=== PATIENT | female | born 1990 | race Caucasian/White ===

== ENCOUNTER 2018-05-19 10:40 | Emergency (ER) | payer OTHER, BC ==
[2018-05-19 11:09] VITALS: BP 135/90
[2018-05-19] MEDS ORDERED: ACETAMINOPHEN 500 MG TAB PO ONE (12:55)
--- NOTE | 2018-05-19 14:18 | EDPHY ---
General Time Seen by Provider: 05/19/18 13:01 Narrative: CLINICAL IMPRESSION: Left pointer finger laceration ASSESSMENT/PLAN: Patient is a 28-year-old female with no significant medical history who presents to the emergency department after sustaining a superficial laceration to her left pointer finger. Patient is not toxic appearing, she is in no distress. Physical examination reveals superficial 1.5 cm laceration to the radial aspect of the left distal phalanx; does not involve the nail. There is no evidence of deep structure involvement, neurovascular compromise, foreign body, or bony involvement. The wound was not contaminated, tetanus status was already up-to-date. The wound was irrigated and then repaired as discussed in the procedure note, the patient tolerated this well. Wound care instructions discussed with patient and family member. She is well established with his PCP , they will call to schedule an appointment for wound check; return to the ED in 7 days for suture removal or they can certainly be removed by her PCP. Return precautions discussed- she will return for increased pain, signs of infection, fever, vomiting, if the wound opens or for any other concerns. Patient and family member both verbalize understanding and are in agreement with plan. DIFFERENTIAL DIAGNOSIS: includes but not limited to laceration of tendon or vascular structure, underlying fracture, laceration with retained FB ED PROCEDURES: Laceration Repair Verbal consent obtained by patient. Risks discussed, including but not limited to infection, pain, retained foreign body, need for additional repair, poor cosmetic result, tendon damage, nerve damage, poor wound healing, vascular damage. Alternatives to repair discussed. Mobile protocol used to establish correct patient, procedure, equipment, client application support engineer, and site. Anesthesia obtained by local infiltration. Anesthetized with 1% lidocaine. Laceration location radial aspect left pointer finger, distal phalanx, length 1.5 cm, depth 0.2 mm, Repair type simple. Patient was prepped and draped in usual sterile fashion. Hemostasis achieved with direct pressure. Wound explored through full range of motion and entire depth of wound probed and visualized with gloved finger. No suspicion for nerve damage, tendon damage, underlying fracture, vascular damage, foreign body, or contamination. Area was cleansed with Shur-Clens and irrigated with sterile saline as per protocol. No foreign body or material removed. Repair method 5.0 Prolene, interrupted. Five sutures placed. Well aligned, closely approximated. wound was dressed with antibiotic ointment and dressing. Patient tolerated well with no immediate complications. Wound care: Clean and dry x 24 hours, gently clean with soap and water, cover with topical antibiotic ointment/bandage. Suture/Staple removal: 7 Days CHIEF COMPLAINT: Laceration HPI: Patient is a 28-year-old female with no significant medical history who presents to the emergency department after sustaining a superficial laceration to her left pointer finger. Patient reports just prior to arrival she was cutting an orange, she was "sawing" through the [place] when she accidentally slipped cutting her left pointer finger. Patient denies any numbness or tingling to the distal finger, she denies any other injury or complaint. She is right-hand dominant, up-to-date on her tetanus status. PAST MEDICAL HISTORY: Denies Pertinent Past Surgical History: Denies Social History: Denies cigarette smoking, occasional alcohol, denies illicit drug use REVIEW OF SYSTEMS: All other systems negative Constitutional: No fever, no chills Musculoskeletal: No deformity, no joint pain Skin: Laceration Neurological: No sensory loss or weakness PHYSICAL EXAM: General Appearance: Alert, oriented, appropriate for age, cooperative, NAD, well hydrated, non-toxic appearing, VSS, no hypoxia. Neurological: Alert and oriented, Neurological exam grossly normal with no focal deficit. Skin: No rashes. Left pointer finger with approximately 1.5 cm superficial laceration along the radial aspect, distal phalanx. Does not involve the nail or nail bed. Musculoskeletal: Patient's fingers nontender to palpation, full range of motion. Strength tested at each interphalangeal joint to the pointer finger with no deficit. Two point discrimination is intact distally. MEDICAL DECISION MAKING: Patient was seen independently. Secondary supervising physician at time of evaluation was Dr. Fisher, he did not evaluate this patient however I discussed plan and care with him. Diagnosis: Left finger laceration. New, requires workup Summary: See assessment and plan for summary of ED visit Clinical lab tests: Not applicable. Independent visualization of images, tracing, or specimens- no. Decision to obtain medical records or history from someone other than the patient- no Review / Summarize previous medical records- no Discussed patient with another provider- yes, Dr. Fisher. - History Smoking Status: Never smoked - Objective Vital Signs: Initial Vital Signs Temperature (C) 36.7 C 05/19/18 11:07 Heart Rate 71 05/19/18 11:07 Respiratory Rate 16 05/19/18 11:07 Blood Pressure 135/90 H 05/19/18 11:07 O2 Sat (%) 97 05/19/18 11:07 O2 Delivery Mode Room Air Allergies/Adverse Reactions: No Known Allergies Allergy (Unverified 05/19/18 11:09) Home Medications: Medication Instructions Recorded Adderall 10 MG (*) 05/19/18 Plaquenil 200 mg (*) 05/19/18 Medications Given: Discontinued Medications Acetaminophen (Tylenol) 1,000 mg PO EDNOW ONE Stop: 05/19/18 12:56 Last Admin: 05/19/18 13:00 Dose: 1,000 mg Departure - Departure Disposition: Home, Routine, Self-Care Clinical Impression: Finger laceration Qualifiers: Encounter type: initial encounter Finger: index finger Damage to nail status: without damage Foreign body presence: without foreign body Laterality: left Qualified Code(s): S61.211A - Laceration without foreign body of left index finger without damage to nail, initial encounter Condition: Good Instructions: Laceration (ED) Additional Instructions: DISCHARGE INSTRUCTIONS FROM YOUR DOCTOR Thank you for visiting our emergency department today. Please keep in mind that discharge from the emergency department does not mean that there is nothing wrong - it simply means that we have not identified an emergency condition that requires further evaluation or treatment in the hospital. You should always plan to follow up with primary care for re-evaluation of your condition in the next 2-3 days. Keep wound clean and dry for 24 hours. Then remove dressing, clean at least twice daily or when soiled with soap and water, apply antibiotic ointment and dressing. Do not soak the wound while the stitches are in place. Elevate hand as much as possible for the next 24 hours to decrease the swelling and pain. Wear the splint to immobilize the finger for the next 2-5 days to facilitate rapid healing. Anticipate suture removal in 7 days. Tylenol every 4-6 hours as directed as needed for pain. Do not exceed 4000 mg in 24 hours. Ibuprofen as directed every 6-8 hours with food as needed for pain. Stop for stomach upset. Do not exceed 2400 mg in 24 hours. Continue your regular medications as prescribed. Schedule a follow-up visit with your primary care physician for suture removal in 7 days and sooner for wound check for any concerns. As discussed the laceration was not deep enough to visualize the tendon today. It is unlikely a tendon injury is present and your tendon function is currently intact. However, if at any time, you feel a pop and have difficulty bending or straightening the finger, you should seek re-evaluation from a hand specialist urgently. Return for signs of wound infection ie: redness, swelling, drainage, foul odor, red streaks, fever, chills, pain, bleeding, if the stitches pop, if the wound opens, for numbness, tingling, weakness, discoloration of the finger, coolness of the finger, inability to move or bend the finger or for any other new, worsening or worrisome symptoms. People present with illnesses and injuries in different ways, and it is always possible that we have missed something. You may always return for re-evaluation if symptoms worsen or if they are not improving or if you develop new/different symptoms. Again, thank you for choosing our emergency department. We hope that you feel better. Referrals: Marline Miller MD [Primary Care Provider] - 5-7 days, call for appt. ( Seven days suture removal)
== END 2018-05-19 14:27 | disposition home or self-care (01) ==
PROC: 0HQGXZZ Repair Left Hand Skin, External Approach (ICD-10-PCS; principal; 2018-05-19)
DX: S61.211A Laceration without foreign body of left index finger without damage to nail, initial encounter (principal); W26.0XXA Contact with knife, initial encounter; Y93.G1 Activity, food preparation and clean up; Y92.9 Unspecified place or not applicable; Y99.9 Unspecified external cause status